=== PATIENT | female | born 1995 | race Caucasian/White ===

== ENCOUNTER → 2019-10-15 | Outpatient (CLI) | payer OTHER ==
[2019-10-15 11:19] LABS: BASO % 0.5 % (0.0-1.0); EOS # 0.1 10^3/uL (0.0-0.5); EOS % 1.3 % (0.0-3.0); HEMATOCRIT 38.2 % (36.0-47.0); HEMOGLOBIN 12.8 g/dl (12.0-15.5); LYMPH # 1.8 10^3/uL (1.5-5.0); LYMPH % 21.4 % (24.0-44.0); MEAN CORPUSCULAR HEMOGLOBIN 30.5 pg (27.0-33.0); MEAN CORPUSCULAR HGB CONC 33.5 g/dl (32.0-36.5); MONO # 0.6 10^3/uL (0.0-0.8); MONO % 7.4 % (0.0-5.0); NEUTROPHILS # 5.7 10^3/uL (1.5-8.5); PLATELET COUNT, AUTOMATED 326 10^3/uL (150-450); WHITE BLOOD COUNT 8.3 10^3/uL (4.0-10.0)
[2019-10-15 12:39] LABS: HEPATITIS C VIRUS ABY INDEX < 0.0 INDEX (<0.8); HIV 1&2 SCREEN CENTAUR NEGATIVE (NEGATIVE); RUBELLA IgG QUALITATIVE IMMUNE (IMMUNE)
[2019-10-15 12:54] LABS: CHLAMYDIA DNA AMPLIFICATION NEGATIVE (NEGATIVE); GC DNA AMPLIFICATION NEGATIVE (NEGATIVE)
== END ==
LOC: M PLALAB 10:03
PROVIDERS: ATTEND Advanced Practice Midwife
DX: Z34.01 Encounter for supervision of normal first pregnancy, first trimester (principal); Z3A.00 Weeks of gestation of pregnancy not specified

== ENCOUNTER → 2019-11-05 | Outpatient (CLI) | payer OTHER | LOC: M PLALAB 09:00 | PROVIDERS: ATTEND Nurse Practitioner Women's Health | DX: Z13.79 Encounter for other screening for genetic and chromosomal anomalies (principal) ==

== ENCOUNTER → 2019-12-01 | Outpatient (REF) | payer OTHER | LOC: M SFHCWAGY 12:46 | PROVIDERS: ATTEND Advanced Practice Midwife | DX: R35.0 Frequency of micturition (principal) ==

== ENCOUNTER → 2019-12-20 | Outpatient (REF) | payer OTHER | LOC: M PLALAB 13:51 | PROVIDERS: ATTEND Advanced Practice Midwife | DX: R30.0 Dysuria (principal) ==

== ENCOUNTER → 2019-12-28 | Outpatient (REF) | payer OTHER | LOC: M SFHCWAGY 17:32 | PROVIDERS: ATTEND Advanced Practice Midwife | DX: Z34.02 Encounter for supervision of normal first pregnancy, second trimester (principal) ==

== ENCOUNTER → 2019-12-28 | Outpatient (CLI) | payer OTHER ==
--- NOTE | 2019-12-29 04:28 | REP ---
Clinical: Anatomical evaluation. Comparison: None . Findings: Examination demonstrates a single live intrauterine in breech presentation. motion is identified by technologist. Placenta is noted posterior and grade I without evidence for placenta previa or abruption. Amniotic fluid volume is normal. Cervix measures 3.7 cm in length and appears closed. No evidence for nuchal cord. Gestational age by current measurements 20 weeks 3 days with BARRIE 05/13/2020 . FHR equals 142 beats per minute. BPD 4.6 cm 20 weeks 0 days HC 17.7 cm 20 weeks 1 day AC 17.0 cm 22 weeks 0 days FL 3.5 cm 20 weeks 6 days HL 3.3 cm 20 weeks 6 days HC/AC ratio 1.04 Estimated weight 413 grams ( 76 percentile). Anatomical assessment demonstrates normal structures including cranium, choroid plexus, cavum, cerebellum/posterior fossa, facial features, lungs, four-chamber heart/ventricular outflow tracts, diaphragm, stomach, cord insertion/three-vessel cord, kidneys/bladder, spine, and extremities. Impression: Single live intrauterine in breech presentation demonstrating appropriate estimated weight. Anatomical assessment is complete and normal.
== END ==
LOC: M WHC 10:05
PROVIDERS: ATTEND Advanced Practice Midwife
DX: Z34.82 Encounter for supervision of other normal pregnancy, second trimester (principal); Z3A.20 20 weeks gestation of pregnancy

== ENCOUNTER → 2020-01-18 | Outpatient (REF) | payer OTHER | LOC: M SFHCWAGY 17:11 | PROVIDERS: ATTEND Advanced Practice Midwife | DX: O26.899 Other specified pregnancy related conditions, unspecified trimester (principal); Z3A.00 Weeks of gestation of pregnancy not specified ==

== ENCOUNTER → 2020-02-22 | Outpatient (REF) | payer OTHER ==
[2020-02-22 13:29] LABS: HEMATOCRIT 32.3 % (36.0-47.0); HEMOGLOBIN 10.8 g/dl (12.0-15.5); MEAN CORPUSCULAR HGB CONC 33.4 g/dl (32.0-36.5); MEAN CORPUSCULAR VOLUME 92.8 fl (80.0-96.0); PLATELET COUNT, AUTOMATED 268 10^3/uL (150-450); RED BLOOD COUNT 3.48 10^6/uL (4.00-5.40); WHITE BLOOD COUNT 13.3 10^3/uL (4.0-10.0)
== END ==
LOC: M PLALAB 10:24
PROVIDERS: ATTEND Advanced Practice Midwife
DX: Z3A.01 Less than 8 weeks gestation of pregnancy (principal)

== ENCOUNTER 2020-05-06 09:30 | Inpatient (IN) | payer OTHER ==
[~2020-05-06] VITALS: Ht 180.3 cm; Wt 98.8 kg
[2020-05-06] MEDS ORDERED: MAGN200T PO (09:59)
[2020-05-06] MEDS ORDERED: ALPR0.5T3 (09:59)
[2020-05-06] MEDS ORDERED: FISH1000 PO (09:59)
[2020-05-06] MEDS ORDERED: CALC500C15 PO (09:59)
[2020-05-06] MEDS ORDERED: OMEP-218 (09:59)
[2020-05-06] MEDS ORDERED: PROZ10CA7 PO (09:59)
[2020-05-06] MEDS ORDERED: PRENTAB9 PO (09:59)
[2020-05-06] MEDS ORDERED: GNP250TA9 PO (10:01)
[2020-05-06 11:45] LABS: HEMATOCRIT 29.3 % (36.0-47.0); HEMOGLOBIN 9.9 g/dl (12.0-15.5); MEAN CORPUSCULAR HEMOGLOBIN 29.2 pg (27.0-33.0); MEAN CORPUSCULAR HGB CONC 33.8 g/dl (32.0-36.5); MEAN CORPUSCULAR VOLUME 86.4 fl (80.0-96.0); PLATELET COUNT, AUTOMATED 316 10^3/uL (150-450); RED BLOOD COUNT 3.39 10^6/uL (4.00-5.40); WHITE BLOOD COUNT 15.3 10^3/uL (4.0-10.0)
[2020-05-06] MEDS ORDERED: PENICILLIN G POTASSIUM IV 5 MU in D5W MINI-BAG PLUS 100 ML IV STA ×2 (11:58→20:48)
[2020-05-06] MEDS ORDERED: miSOPROStol 50 MCG 1/2 TAB (S0191) PO ONE ×2 (12:00→16:30)
--- NOTE | 2020-05-06 13:31 | HPEPDOC ---
Obstetrical History & Physical General Date of Admission May 06, 2020 at 09:30 History of Present Illness 25-year-old 1 presents at 39 weeks 2 days estimated gestational age for social induction of labor. course has been unremarkable. She initiated care in the first trimesters and has been appropriate throughout. She reports active movements. 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 Past Medical History Surgical History: Denies/None Family History Significant Family History: No pertinent family hx Social History Psychosocial History: Depression * Smoker: non-smoker Alcohol: Denies Drugs: denies Allergies Coded Allergies: No Known Allergies (Unverified , 05/06/20) Medications Scheduled Fluoxetine HCl (Prozac) 10 Mg Capsule, 30 MG PO DAILY Magnesium Oxide (Magnesium) 250 Mg Tablet, 50 MG PO DAILY [place]-3 Fatty Acids/Fish Oil (Fish Oil 1,000 mg Capsule) 1 Each Capsule, 1 CAP PO DAILY No.137/Iron/Folic Acd ( Vitamin Tablet) 1 Each Tablet, 1 TAB PO DAILY Miscellaneous Medications Alprazolam (Alprazolam) 0.5 Mg Tablet Calcium Carbonate (Antacid) 200 Mg Tab.chew, 500 MG PO Omeprazole (Omeprazole) 20 Mg Capsule.dr Physical Examination Physical Examination GENERAL: Alert and oriented times three. BREAST: . ABDOMEN: Gravid and non-tender to touch. FETUS: Is vertex (VTX) by sterile vaginal examination (SVE), fetus is vertex (VTX) by Jovanny. HEART RATE: Regular rate and rhythm. LUNGS: Clear to auscultation (CTA). Laboratory Data 24H LABS Laboratory Tests 2 05/06/20 09:37: Serology Scanned Report Hepatitis B Testing 05/06/20 10:38: Nucleated Red Blood Cells % (auto) 0.0 CBC/BMP Laboratory Tests 05/06/20 10:38 Pertinent Laboratoy Data Blood Type: A+ RBC Antibody Screen: Negative HIV: Negative Hepatitis B: Negative Hepatitis C: Negative Rapid Plasma Reagin: Nonreactive Rubella: Immune Chlamydia/Gonorrhea: Negative Group B Streptococcus: Negative Anatomy Ultrasound Placenta Location: Posterior Normal Anatomy: Yes Vaginal Examination Dilation: 2cm Effacement: 50% Station: -2 Cervical Consistency: Medium Cervical Position: Middle Presentation: Cephalic presentation Assessment Variability: Moderate Accelerations: Positive Tocometer Contractions: No Assessment/Plan Assessment 25-year-old 1 at 39 weeks 2 days as needed gestational age for induction labor. Reassuring status. Patient thoroughly counseled regards to induction labor. Discussed medication as well as procedures performed labor and delivery. She is been counseled for emergency surgery, blood products anesthesia and pt desires to proceed with admission and induction labor. Will initiate her induction of labor with 50 g oral misoprostol. Plan Admit and orient. 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 Diet: Regular. Group B Streptococcus (GBS). Positive. Labs and intravenous (IV) per unit protocol. Counseled on Pitocin and induction of labor (IOL). Anticipate normal spontaneous delivery (). C-S as appropriate. SANDY CORNELL MD. May 06, 2020 13:31
[2020-05-06] MEDS ORDERED: PENICILLIN G POTASSIUM IV 2.5 MU in IV 1 EA IV SCH (16:00)
[2020-05-06] MEDS ORDERED: LR 1,000 ML IV ONE (19:00)
[2020-05-06] MEDS ORDERED: FENTANYL 2MCG/ML ROPIVACAINE 0.2% IN 0.9% NACL 100ML IVBAG As Ordered ONE (20:19)
[2020-05-06] MEDS ORDERED: PENICILLIN G POTASSIUM 5 MU VIAL As Ordered ONE (20:48)
[2020-05-06] MEDS ORDERED: LR 1,000 ML IV SCH (21:00)
[2020-05-06] MEDS ORDERED: OXYTOCIN DRIP 30 UNITS in IV 1 EA IV SCH (21:00)
[2020-05-07] MEDS ORDERED: OXYTOCIN 30 UNITS IN 0.9% NaCl 500ML IV BAG (J2590) As Ordered ONE (00:44)
[2020-05-07] MEDS ORDERED: PENICILLIN G POTASSIUM IV 2.5 MU in IV 1 EA IV SCH (01:00)
[2020-05-07] MEDS ORDERED: OMEPRAZOLE 20 MG CAP PO ONE (02:15)
[2020-05-07] MEDS ORDERED: OMEPRAZOLE 20 MG CAP As Ordered ONE (02:16)
[2020-05-07] MEDS ORDERED: OXYTOCIN DRIP 30 UNITS in IV 1 EA IV SCH (04:40)
[2020-05-07] MEDS ORDERED: ACETAMINOPHEN TAB 650MG DOSE (2X325MG) PO PRN (04:45)
[2020-05-07] MEDS ORDERED: MEASLES,MUMPS,RUBELLA VACCINE INJ (MMR-II) (90707) SC SCH (04:45)
[2020-05-07] MEDS ORDERED: METHYLERGONOVINE MALEATE 0.2 MG TAB PO PRN (04:45)
[2020-05-07] MEDS ORDERED: MOM 30ML SUSPENSION UDC PO PRN (04:45)
[2020-05-07] MEDS ORDERED: IBUPROFEN 600MG TAB PO PRN (04:45)
[2020-05-07] MEDS ORDERED: DOCUSATE SODIUM 100 MG CAP PO PRN (04:45)
[2020-05-07] MEDS ORDERED: RHOGAM 300 MCG (1500 IU) INJ (J2790) IM SCH (04:45)
[2020-05-07] MEDS ORDERED: DIBUCAINE 1% OINTMENT 30GM TOP PRN (04:45)
[2020-05-07] MEDS ORDERED: ANUSOL HC CREAM 30GM TOP PRN (04:45)
--- NOTE | 2020-05-07 04:48 | DNPDOC ---
[facility] Delivery Note Delivery Note DATE OF DELIVERY: 05/07/2020 TIME OF : 0420 GENDER: Female. APGARS: 8 and 9. WEIGHT: 3570 grams or 7 pounds 14 ounces. LACERATIONS: None ANESTHESIA: Epidural. ESTIMATED BLOOD LOSS: 300ml COUNTS: 5 laparotomy sponges accounted for prior to after delivery. . DELIVERY NOTE: On 05/07/2020 at 0420, Ms. Packer, a 25-year-old 1, now para 1 had a spontaneous vaginal delivery of viable female , Apgars, 8 and 9. Weight was 3570 g, 7 lbs. 14 oz. Head was delivered occiput anterior (OA) with right arm, followed by delivery of the shoulders and corpus. Infant was handed to mom with a good cry. Cord was clamped times two and was cut by the father of baby under my direction. Placenta was then drained and delivered grossly intact. A premixed bag of 500 mL of normal saline with 30 units of Pitocin was then bolused along with uterine massage until the uterus was firm.On inspection, cervix, vagina, perineum was grossly intact and hemostatic. Mom and baby in recovery on stable condition. The couples decided to remain in daughter SANDY Lopez MD. May 07, 2020 04:47
[2020-05-07] MEDS: IBUPROFEN 800 MG TAB PO PRN ×2 (04:51→13:37)
[2020-05-07 06:00] VITALS: BP 119/66
[2020-05-07] MEDS: PRENATAL VITAMINS CHEWABLE TABLET PO SCH (09:29)
[2020-05-07] MEDS: ACETAMINOPHEN 500 MG TAB PO PRN ×2 (09:29→20:07)
[2020-05-07 18:00] VITALS: BP 117/57
[2020-05-08 05:51] VITALS: BP 112/62
[2020-05-08] MEDS ORDERED: INFLUENZA QUADRIVALENT PF VACCINE 0.5ML SYRINGE IM ONE (09:00)
[2020-05-08] MEDS: PRENATAL VITAMINS CHEWABLE TABLET PO SCH (09:35)
== END 2020-05-08 12:30 | disposition home or self-care (01) | DRG 807 ==
LOC: M LDI 09:30 → M OBS 05-07 06:25
PROVIDERS: ADMIT Obstetrics & Gynecology; ATTEND Obstetrics & Gynecology
PROC: 3E0P7GC Introduction of Other Therapeutic Substance into Female Reproductive, Via Natural or Artificial Opening (ICD-10-PCS; 2020-05-06)
PROC: 10E0XZZ Delivery of Products of Conception, External Approach (ICD-10-PCS; principal; 2020-05-07)
DX: O80 Encounter for full-term uncomplicated delivery (principal); Z37.0 Single live birth; Z3A.39 39 weeks gestation of pregnancy